=== PATIENT | male | born 1995 | race Asian ===

== ENCOUNTER 2016-08-12 14:41 | Emergency (ER) | payer OTHER ==
[~2016-08-12] VITALS: Ht 180.3 cm; Wt 74.6 kg
[~2016-08-12 14:41] MED LIST: CETI10TA84 PO; METH1TAB81 PO
[2016-08-12 14:53] VITALS: BP 132/76; TEMP 36.8; Ht 180.3 cm; Wt 74.6 kg
[2016-08-12] MEDS ORDERED: PROPARACAINE HCL 0.5% OP SOLN 15 ML BTL OP STA (15:16)
[2016-08-12] MEDS ORDERED: CIPROFLOXACIN HCL 0.3% OP SOLN 2.5 ML BTL OP ONE (15:45)
--- NOTE | 2016-08-12 15:53 | EMERGENCY ROOM VISIT NOTE ---
ED Visit Note First contact with patient: 15:03 CHIEF COMPLAINT: Eye pain HISTORY OF PRESENT ILLNESS: This 20-year-old male patient presents to the emergency department ambulatory complaining of pain in the right eye which has been present for several days but worsened significantly this morning. The patient is a contact lens wearer and states that he always remove the contacts at night, then replaces them in the morning. He states that he noticed increased pain in the right eye after removing his contact last night. He states that when he woke up this morning, his eye was very red and light bothered the eye. He does report he has had issues similar to this in the past. He denies any blurred vision or double vision. The patient rates the pain as stinging and 6/10. He denies any recent trauma to the eye. REVIEW OF SYSTEMS: A 6 system review of systems was completed with positives and pertinent negatives listed in the HPI. ALLERGIES: No known drug allergies MEDICATIONS: No chronic medications PMH: No significant past medical history. SOCIAL HISTORY: The patient is a [employer] student and lives by himself. Nonsmoker, denies alcohol use. PHYSICAL EXAM: Vital Signs: Reviewed Nurse's notes, vital signs stable. Visual acuity is 20/200 in the left eye, in the right eye it is unable to be measured without correction. GENERAL: This is a 20-year-old male, in no acute distress, but who is uncomfortable from the eye problem. Well-developed well-nourished. EYES: The pupils are equal round and reactive to light and accommodation. EOMs are full and without tenderness. There is discharge of clear tears from the right eye which is injected. There is no foreign body visible under the eyelid even after lid eversion. Funduscopic exam reveals no hemorrhages, papilledema, or other abnormalities. No foreign body was seen embedded in the cornea under slit lamp exam. The cornea was clear and no hyphema was seen. Diffuse, punctate fluorescein uptake was observed over the cornea of the right eye under UV light examination. No dendritic uptake noted. EMERGENCY DEPARTMENT COURSE: I examined the patient. Alcaine 2 drops were placed in the patient's right eye. A slit lamp exam was performed as above. The patient appears to have a punctate keratitis secondary to contact lens use. He does report he has had similar issues in the past. The patient's visual acuity was very poor, but he states that his vision is normal for him without correction. Ciloxan two drops was placed in the patient's right eye. The patient has already seen [facility] and has an appointment scheduled in 2 days for a recheck. He was instructed to return here for any worsening of his vision or worsening of his symptoms. He verbalized understanding of my assessment and treatment plan. The patient was discharged home in good condition. DIAGNOSIS: Corneal abrasion of the right eye Current/Historical Medications No Active Prescriptions or Reported Meds Allergies Coded Allergies: No Known Allergies (Unverified , 04/30/16) Vital Signs Date Time Temp Pulse Resp B/P Pulse Ox O2 Delivery O2 Flow Rate FiO2 08/12/16 14:53 36.8 100 21 132/76 97 Room Air Medications Administered Medications (Trade) Dose Ordered Sig/Ana Route Start Time Stop Time Status Last Admin Dose Admin Proparacaine HCl (Alcaine 0.5% Oph Soln) 2 drops NOW STAT OP 08/12/16 15:16 08/12/16 15:17 DC 08/12/16 15:16 2 DROPS Departure Information Impression Primary Impression: Keratitis secondary to contact lens Dispostion Home / Self-Care Condition GOOD Prescriptions No Active Prescriptions or Reported Meds Referrals [facility] (PCP) Patient Instructions My [facility] Additional Instructions You have been treated in the Emergency Department today for your Corneal Abrasion. You have been prescribed Ciloxan eye drops. This is an antibiotic which will help to prevent an infection from developing in your affected eye. You should use 2 drops in the affected eye every 2 hours while awake for the first 2 days, then every 4 hours for the remaining 5 days. This is a total of a 7-day course for these antibiotic eye drops. For pain control, you can use the following [id number] medicines (if >12 yo): - Regular strength (325mg/tab) Tylenol (acetaminophen) 2 tabs every 4-6 hours as needed. Do not exceed 12 tablets in a 24 hour period. Avoid taking more than 4 grams (4000 mg) of Tylenol per day. This includes any other sources of acetaminophen you may take on a regular basis. - Regular strength (200 mg/tab) Advil (ibuprofen) 1-2 tabs every 4-6 hours as needed. Do not exceed a dose of 3200 mg per day. You should relax in a quiet, dark place for the rest of the day. You should wear sunglasses while outside for the next few days until your eyes are not as sensitive to the light. Follow-up with [facility] as scheduled. Return to the Emergency Department if your current symptoms worsen despite treatment course outlined above, or if you develop any of the following symptoms : intractable pain, visual disturbances, loss of vision, increased redness, swelling, drainage, or if you develop a fever.
[2016-08-12 16:00] VITALS: PULSE 90; O2SAT 98
== END 2016-08-12 16:00 | disposition home or self-care (01) ==
LOC: C.EDB 14:42 → C.EDD 16:00
DX: H16.9 Unspecified keratitis (principal); H18.821 Corneal disorder due to contact lens, right eye

== ENCOUNTER 2017-03-01 18:49 | Emergency (ER) | payer OTHER ==
[~2017-03-01] VITALS: Ht 180.3 cm; Wt 73.2 kg
[2017-03-01 18:52] VITALS: BP 119/69; PULSE 99; TEMP 37; O2SAT 96; Ht 180.3 cm; Wt 73.2 kg
[2017-03-01] MEDS ORDERED: PROPARACAINE HCL 0.5% OP SOLN 15 ML BTL OP STA (19:05)
[2017-03-01] MEDS ORDERED: HYDR-5688 PO (19:26)
[2017-03-01] MEDS ORDERED: CIPR0.3S OP (19:26)
--- NOTE | 2017-03-02 03:50 | EMERGENCY ROOM VISIT NOTE ---
ED Visit Note First contact with patient: 18:56 Chief Complaint: I scratched my right eye with my contact lens. History of Present Illness: Mr. Carlos is a 21-year-old male who ambulates into the ED complaining of bilateral eye pain more pronounced on the right. Patient reports he went to sleep without removing his contacts. When he awoke from sleep approximately 2 hours ago he attempted to remove the contact and reports the contact for dried out and he had difficulty removing them. He reports he believes he scratched his left cornea. Patient reports he has having a severe burning sensation in the right eye. He rates his discomfort 8/10. His pain is nonradiating. He has not identified any aggravating or alleviating factors related to the pain. He has not taken any medications for pain prior to arrival at the hospital. He denies any associated symptoms including fevers, chills, sweats, headaches, nausea, vomiting, visual changes. He then goes on to report that he is also having a mild discomfort in his left eye but does not believe he scratched his eyes. Lastly he reports he's had 2 similar episodes from not taking his contacts out. Review of Systems: As noted above in history of present illness. Past Medical History: As previously noted. Current Medications: Patient denies. Allergies to Medications: Patient denies. Social History: Patient is currently University student; he feels safe in his home environment; he denies tobacco use and admits alcohol use. Tetanus Immunization Status: Patient reports up-to-date. Physical Examination: Vital Signs: Date Time Temp Pulse Resp B/P (MAP) Pulse Ox O2 Delivery O2 Flow Rate FiO2 03/01/17 18:52 37.0 99 16 119/69 96 Room Air GENERAL: 21-year-old male in moderate distress due to pain, nontoxic-appearing, afebrile and hemodynamically stable. NEUROLOGICAL: Awake, alert and oriented to person, place and time. Answering questions appropriately and following commands. SKIN: Warm, dry and pink. No soft tissue eruptions or trauma noted. HEENT: Atraumatic and normocephalic. PERRLA. EOMI without nystagmus. Sclera moderately and conjunctiva pink with drainage of clear tears. Moderate light sensitivity. No foreign bodies noted under the eyelids are embedded in the cornea. The anterior chamber is clear. On slit lamp examination with staining both eyes present with superficial punctate keratitis and the right eye has a corneal abrasion. Visual Acuity: Right 20/50 without correction, Left 20/30 without correction. No drainage from naris. ED Course: Patient is assessed as noted above. Patient's medication list was reviewed. Alcaine was used to anesthetize the ice for examination. Patient was educated about today's findings and instructed on his treatment plan ; he verbalized understanding and agreement with this plan. Clinical Impression: Right corneal abrasion. Bilateral punctate keratitis. Disposition: Patient discharged home in stable condition; prior to departure he was reassessed and subjectively reported that he was pain-free. Plan: Comfort measures were discussed with the patient including a sliding pain medication scale of ibuprofen, acetaminophen and Ronda; patient's name was checked in the state database and no red flags were noted and he patient was given appropriate narcotic precautions. Patient was encouraged to use 2 drops of Ciloxan in both eyes every 4 hours while awake for 5 days. Patient was encouraged to avoid contact use for the next 10 days. Patient is encouraged to follow-up with ophthalmology or return to the ED in 36- 48 hours for recheck. Patient is encouraged return the ED sooner for worsening/uncontrolled pain, vomiting, fevers, visual change, headaches or any new/concerning symptoms.
== END 2017-03-01 19:39 | disposition home or self-care (01) ==
LOC: C.EDB 18:50 → C.EDD 19:39
DX: S05.01XA Injury of conjunctiva and corneal abrasion without foreign body, right eye, initial encounter (principal); X58.XXXA Exposure to other specified factors, initial encounter; H16.143 Punctate keratitis, bilateral

== ENCOUNTER 2017-03-20 21:16 | Emergency (ER) | payer OTHER ==
[~2017-03-20] VITALS: Ht 180.3 cm; Wt 72.8 kg
[~2017-03-20 21:16] MED LIST changes: -CETI10TA84 PO; +HYDR-5688 PO; -METH1TAB81 PO
[2017-03-20 21:21] VITALS: TEMP 37; Ht 180.3 cm; Wt 72.8 kg
[2017-03-20] MEDS ORDERED: ONDANSETRON INJ 2 MG/ML 2 ML VIAL IV STA (21:36)
[2017-03-20] MEDS ORDERED: SODIUM CHLORIDE 0.9% 1000ML 1,000 ML IV STA (21:36)
[2017-03-20 21:47] LABS: BASO % 0.4 %; BASO ABS # 0.03 K/uL (0-0.2); COMPLETE YES; EOS % 0.3 %; HEMATOCRIT 50.3 % (42-52); IG% 0.3 %; MEAN CELL VOLUME 84.3 fL (80-100); MEAN CORPUSCULAR HGB CONC 36.8 g/dl (32-36); MEAN PLATELET VOLUME 9.7 fL (7.4-10.4); MONO % 8.7 %; NEUT % 66.3 %; PLATELET COUNT 198 K/uL (130-400); RED BLOOD COUNT 5.97 M/uL (4.7-6.1); WHITE BLOOD COUNT 7.93 K/uL (4.8-10.8)
[2017-03-20] MEDS ORDERED: PRVHFAIN INH (21:53)
[2017-03-20 22:13] LABS: BUN/CREATININE RATIO 6.8 (10-20); CALCIUM 9.4 mg/dl (8.5-10.1); CREATININE 1.14 mg/dl (0.60-1.40); POTASSIUM 3.5 mmol/L (3.5-5.1)
[2017-03-20 22:14] LABS: URINE APPEARANCE CLEAR (CLEAR); URINE BILIRUBIN NEG (NEG); URINE COLOR YELLOW; URINE NITRITE NEG (NEG); URINE PH 7.5 (4.5-7.5); URINE SPECIFIC GRAVITY 1.025 (1.000-1.030); UROBILINOGEN NEG (NEG); ZZUR CULT IF INDIC CLEAN CATCH NO
[2017-03-20 22:25] LABS: MANUAL MICROSCOPIC REQUIRED? NO; REVIEW REQ? NO
[2017-03-21 00:11] VITALS: BP 149/89; PULSE 100; O2SAT 99
[2017-03-21] MEDS ORDERED: ONDANSETRON HOME PACK 4MG OD TAB ONE (00:12)
--- NOTE | 2017-03-21 03:31 | EMERGENCY ROOM VISIT NOTE ---
History First contact with patient: 21:26 Chief Complaint: NAUSEA Stated Complaint: SEVERE NAUSEA AND DIZZINESS,THREW UP, NEAR SYNCOPE History of Present Illness The patient is a 21 year old male who presents to the Emergency Room with complaints of Nausea, vomiting, diarrhea and lightheadedness for the past 12 hours after eating shrimp lo mein yesterday afternoon from a [employer] restaurant. No blood or black in the diarrhea or emesis. Patient denies chest pain, dyspnea, abdominal pain, fevers, recent antibiotics, well water, recent travel. No sick contacts. Review of Systems See HPI for pertinent positives & negatives. A total of 10 systems reviewed and were otherwise negative. Past Medical/Surgical History Medical Problems: (1) No Known Active Medical Problems Social History Smoking Status: Former Smoker Alcohol Use: none Drug Use: none Occupation Status: [employer] student Current/Historical Medications Scheduled PRN Albuterol (Ventolin Hfa), 2 PUFFS INH UD PRN for Shortness of Breath Physical Exam Vital Signs Date Time Temp Pulse Resp B/P (MAP) Pulse Ox O2 Delivery O2 Flow Rate FiO2 03/21/17 00:11 100 18 149/89 99 Room Air 03/20/17 21:21 37.0 128 20 135/80 99 Room Air Physical Exam VITALS: Vitals are noted on the nurse's note and reviewed by myself. Vital signs mildly tachycardic. GENERAL: Pleasant male, in no acute distress, nondiaphoretic, well-developed well-nourished. SKIN: The skin was without rashes, erythema, edema, or bruising. There is no tenting of the skin. Capillary reflex less than 2 seconds. HEAD: Normocephalic atraumatic. EARS: External auditory canals clear, tympanic membranes pearly brewer without erythema or effusion bilaterally. EYES: Pupils equal round and reactive to light and accommodation. Conjunctivae without injection, sclerae without icterus. Extraocular movements intact. NOSE: Patent, turbinates without inflammation or discharge. MOUTH: Mucous membranes mildly dry. Pharynx without erythema or exudate. Uvula midline. Airway patent. Tongue does not deviate. NECK: Supple without nuchal rigidity. No lymphadenopathy. No thyromegaly. Cervical spine is nontender. No JVD. HEART: Tachycardic rate and rhythm without murmurs gallops or rubs. LUNGS: Clear to auscultation bilaterally without wheezes, rales or rhonchi. No dullness to percussion. No retractions or accessory muscle use. ABDOMEN: Positive bowel sounds x 4. Normal tympanic percussion. Soft, nontender, without masses or organomegaly. Vazquez sign negative. No guarding or rebound tenderness. MUSCULOSKELETAL: No muscle atrophy, erythema, or edema noted. NEURO: Patient was alert and oriented to person place and time. Normal sensation to light and sharp touch. No focal neurological deficits. Medical Decision & Procedures Laboratory Results 03/20/17 21:30 Red Blood Count 5.97, Mean Corpuscular Volume 84.3, Mean Corpuscular Hemoglobin 31.0, Mean Corpuscular Hemoglobin Concent 36.8, Mean Platelet Volume 9.7, Neutrophils (%) (Auto) 66.3, Lymphocytes (%) (Auto) 24.0, Monocytes (%) (Auto) 8.7, Eosinophils (%) (Auto) 0.3, Basophils (%) (Auto) 0.4, Neutrophils # (Auto) 5.27, Lymphocytes # (Auto) 1.90, Monocytes # (Auto) 0.69, Eosinophils # (Auto) 0.02, Basophils # (Auto) 0.03 03/20/17 21:30 Test 03/20/17 21:30 White Blood Count 7.93 K/uL (4.8-10.8) Red Blood Count 5.97 M/uL (4.7-6.1) Hemoglobin 18.5 g/dL (14.0-18.0) Hematocrit 50.3 % (42-52) Mean Corpuscular Volume 84.3 fL (80-100) Mean Corpuscular Hemoglobin 31.0 pg (25-34) Mean Corpuscular Hemoglobin Concent 36.8 g/dl (32-36) Platelet Count 198 K/uL (130-400) Mean Platelet Volume 9.7 fL (7.4-10.4) Neutrophils (%) (Auto) 66.3 % Lymphocytes (%) (Auto) 24.0 % Monocytes (%) (Auto) 8.7 % Eosinophils (%) (Auto) 0.3 % Basophils (%) (Auto) 0.4 % Neutrophils # (Auto) 5.27 K/uL (1.4-6.5) Lymphocytes # (Auto) 1.90 K/uL (1.2-3.4) Monocytes # (Auto) 0.69 K/uL (0.11-0.59) Eosinophils # (Auto) 0.02 K/uL (0-0.5) Basophils # (Auto) 0.03 K/uL (0-0.2) RDW Standard Deviation 42.2 fL (36.4-46.3) RDW Coefficient of Variation 13.9 % (11.5-14.5) Immature Granulocyte % (Auto) 0.3 % Immature Granulocyte # (Auto) 0.02 K/uL (0.00-0.02) Urine Color YELLOW Urine Appearance CLEAR (CLEAR) Urine pH 7.5 (4.5-7.5) Urine Specific Reva 1.025 (1.000-1.030) Urine Protein NEG (NEG) Urine Glucose (UA) NEG (NEG) Urine Ketones TRACE (NEG) Urine Occult Blood NEG (NEG) Urine Nitrite NEG (NEG) Urine Bilirubin NEG (NEG) Urine Urobilinogen NEG (NEG) Urine Leukocyte Esterase NEG (NEG) Anion Gap 8.0 mmol/L (3-11) Est Creatinine Clear Calc Drug Dose 106.4 ml/min Estimated GFR () 106.7 Estimated GFR (Non- 92.1 BUN/Creatinine Ratio 6.8 (10-20) Calcium Level 9.4 mg/dl (8.5-10.1) Total Bilirubin 2.2 mg/dl (0.2-1) Direct Bilirubin 0.5 mg/dl (0-0.2) Aspartate Amino Transf (AST/SGOT) 22 U/L (15-37) Alanine Aminotransferase (ALT/SGPT) 22 U/L (12-78) Alkaline Phosphatase 74 U/L (45-117) Total Protein 8.7 gm/dl (6.4-8.2) Albumin 4.8 gm/dl (3.4-5.0) Medications Administered Medications (Trade) Dose Ordered Sig/Ana Route Start Time Stop Time Status Last Admin Dose Admin Sodium Chloride 1,000 ml @ 999 mls/hr Q1H1M STAT IV 03/20/17 21:36 03/20/17 22:36 DC 03/20/17 21:45 999 MLS/HR Ondansetron HCl (Zofran Inj) 4 mg NOW STAT IV 03/20/17 21:36 10/31/17 21:38 DC 03/20/17 21:45 4 MG Ondansetron HCl (ZOFRAN ODT 4MG Home Pack) [address] [facility] [employer] ONCE .ROUTE 03/21/17 00:12 03/21/17 00:13 DC 03/21/17 00:12 1 [facility] ED Course Prior records/ancillary studies reviewed. Triage Nursing notes reviewed. The patient's history was concerning for nausea, vomiting, diarrhea, and abdominal pain. Differential diagnosis: Etiologies such as gastroenteritis, food borne illness, infections, appendicitis , diverticulitis, inflammatory bowel disease, obstruction, GI bleed, biliary pathology, as well as others were entertained. Physical examination findings: As above. Abdominal examination revealed no tenderness. Vital signs reviewed and revealed mildly tachycardic. ER treatment provided: IV hydration 1 L NSS. Zofran, by mouth fluids On reassessment the patient felt better. Patient was tolerating p.o. intake. Diagnostics interpretation by me: The labs revealed stable H&H. Elevated bilirubin. 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 He was advised to follow-up with health services for further workup on this. This appears to be consistent with vomiting and diarrhea most likely viral in etiology. Patient did not have an acute abdomen on exam. He is well- appearing. He is tolerating fluids. He was advised to clear liquid diet today and then progress as tolerated to bland diet tomorrow. He is advised to follow- up with health services in a few days or here in the ER sooner for abdominal pain, fevers, vomiting, worsening signs or symptoms or as needed. By the evaluation outlined above emergent etiologies such as appendicitis, diverticulitis, obstruction, cardiac sources, mesenteric ischemia, aortic pathology, inflammatory bowel disease, renal colic, PUD, biliary pathology, UTI , as well as others were deemed relatively unlikely. The pt informed about the findings as listed above. All questions were answered and pleased with the treatment. Return instructions were outlined and the patient was discharged in stable condition. Outpatient prescription management: Zofran Referral: The patient was referred to their primary care physician/health services for follow-up in 2 to 3 days for a recheck of the current condition. Medical Decision As above Medication Reconcilliation Current Medication List: was personally reviewed by me Blood Pressure Screening Patient's blood pressure: Normal blood pressure Impression Primary Impression: Nausea vomiting and diarrhea Departure Information Dispostion Home / Self-Care Condition GOOD Referrals No Doctor, Assigned (PCP) Patient Instructions My [facility] Additional Instructions DO NOT drive, drink alcohol, operate machinery, or perform dangerous activities today. You were given medications in the ER that can affect your ability to safely function or operate a vehicle. Your bilirubin is elevated today. You should follow-up with health services for this. This most likely is Gilbert syndrome which is a benign finding. Zofran(odansetron) tablets 4mg: Take one and allow it to dissolve in your mouth every four to six hours as needed for nausea or vomiting. Ibuprofen(Motrin, Advil) may be used for fever or pain. Use 600mg every six hours as needed. Take with food. Avoid using more than 2400mg in a 24 hour period. Do not use 2400mg per day for more than three consecutive days without physician direction. Prolonged inappropriate use can lead to stomach upset or ulcers. (AND/OR) Acetaminophen(Tylenol) may be used for fever or pain. Use 1000mg every six hours as needed. Avoid using more than 3000mg in a 24 hour period. Rest and drink plenty of fluids as tolerated. Slow sips of water or sports drinks are recommended instead of large amounts all at once. Continue current medications. Once your stomach is settled start with a clear liquid diet (jello, soup broth, etc.) and then advance as tolerated. You should avoid full, heavy meals for about 24 hrs from the time your symptoms resolved. Return to the ER for persistent vomiting, fevers, abdominal pain, chest pains, difficulty breathing, black or bloody stools, worsening of your condition, or as needed. Follow up with your primary physician / health services in 2-3 days for a recheck of your current condition.
== END 2017-03-21 00:15 | disposition home or self-care (01) ==
LOC: C.EDB 21:17
DX: R11.2 Nausea with vomiting, unspecified (principal); R19.7 Diarrhea, unspecified; Z87.891 Personal history of nicotine dependence

== ENCOUNTER 2017-04-28 20:57 | Emergency (ER) | payer OTHER ==
[~2017-04-28] VITALS: Ht 182.9 cm; Wt 72.4 kg
[~2017-04-28 20:57] MED LIST changes: -HYDR-5688 PO; +PRVHFAIN INH
[2017-04-28 20:59] VITALS: TEMP 36.8; Ht 182.9 cm; Wt 72.4 kg
[2017-04-28] MEDS ORDERED: SODIUM CHLORIDE 0.9% 1000ML 1,000 ML IV STA (21:17)
[2017-04-28] MEDS ORDERED: ONDANSETRON INJ 2 MG/ML 2 ML VIAL IV STA (21:17)
--- NOTE | 2017-04-28 21:21 | EMERGENCY ROOM VISIT NOTE ---
History Report prepared by Mary Kay: Josephine Hutchins Under the Supervision of: Dr. Tony Elise D.O. First contact with patient: 21:04 Chief Complaint: DIZZY Stated Complaint: NAUSEA, DIZZY History of Present Illness The patient is a 21 year old male who presents to the Emergency Room with complaints of intermittent nausea and dizziness beginning 2 days ago. The patient reports a headache, decreased appetite, lightheadedness and one episode of vomiting occurring yesterday. He denies any shortness of breath, chest pain, or abdominal pain. He states he was seen in the ED for the same symptoms a month ago and was told his symptoms may have been a result of something he ate. The patient denies any alcohol or tobacco use. The patient has no previous surgical history. Source of History: patient Onset: 2 days ago Position: other (global) Quality: other (nausea and dizziness) Timing: intermittent Associated Symptoms: + headache, + nausea, + vomiting, No chest pain, No SOB , No abdominal pain Review of Systems See HPI for pertinent positives & negatives. A total of 10 systems reviewed and were otherwise negative. Past Medical & Surgical Medical Problems: (1) No Known Active Medical Problems Family History Patient reports no known family medical history. Social History Smoking Status: Former Smoker Alcohol Use: none Drug Use: none Occupation Status: [employer] student Current/Historical Medications No Active Prescriptions or Reported Meds Allergies Coded Allergies: No Known Allergies (Unverified , 04/30/16) Physical Exam Vital Signs Date Time Temp Pulse Resp B/P (MAP) Pulse Ox O2 Delivery O2 Flow Rate FiO2 04/29/17 03:03 88 18 159/86 100 04/29/17 02:20 100 15 157/90 100 Room Air 04/29/17 00:52 83 16 141/81 100 Room Air 04/28/17 23:23 81 25 144/76 100 Room Air 04/28/17 22:18 87 04/28/17 20:59 36.8 116 16 137/80 97 Room Air Physical Exam GENERAL: Patient is awake, alert, and in no acute distress. Patient is resting comfortably and showing no signs of anxiety EYES: The conjunctivae are clear. The pupils are round and reactive. EARS, NOSE, MOUTH AND THROAT: The nose is without any evidence of any deformity. Mucous membranes are dry tongue is midline NECK: The neck is nontender and supple. RESPIRATORY: Normal respiratory effort is noted there is no evidence of wheezing rhonchi or rales CARDIOVASCULAR: Regular rate and rhythm noted there no murmurs rubs or gallops normal S1 normal S2 GASTROINTESTINAL: The abdomen is soft. Bowel sounds are present in all quadrants. Abdomen is nontender MUSCULOSKELETAL/EXTREMITIES: There is no evidence of gross deformity full range of motion is noted in the hips and shoulders SKIN: There is no obvious evidence of any rash. There are no petechiae, pallor or cyanosis noted. NEUROLOGIC: Patient is awake alert and oriented x3 strength is symmetric patellar reflexes are 2+ bilaterally Medical Decision & Procedures ER Provider Diagnostic Interpretation: Radiology results as stated below per my review and radiologist interpretation: CT OF THE HEAD WITHOUT CONTRAST FINDINGS: No acute intracranial hemorrhage, midline shift or mass effect is present. Ventricular system is normal. Basilar cisterns are patent. There are no extra-axial collections. There is a 3.1 x 1.9 cm hypodensity within the right cerebellar hemisphere. This may be artifactual. Apparent hypodensity within the left cerebellar hemisphere is likely artifactual. Bilateral maxillary sinus mucous retention cysts are noted. There is no calvarial fracture. Mastoid air cells are clear. IMPRESSION: 1. No acute intracranial hemorrhage. 2. 3.1 x 1.9 cm hypodense focus within the right cerebellar hemisphere. Artifact is favored however an acute infarct could appear similar. An MRI of the brain is recommended for further evaluation. Findings discussed with Dr. Elise at time of dictation. 3. Left cerebellar hemispheric hypodensity which is likely artifactual but can be assessed at time of MRI. Electronically signed by: James Long M.D. GALLBLADDER: Hepatomegaly. No gallstones. Normal common bile duct. Otherwise unremarkable right upper quadrant. Radiologist: Robert Alvarez MD Abdominal Series interpreted by me: No acute cardiopulmonary disorder heart size normal nonspecific bowel gas pattern noted no free air no obstruction Laboratory Results 04/28/17 21:45 Red Blood Count 5.15, Mean Corpuscular Volume 86.6, Mean Corpuscular Hemoglobin 32.2, Mean Corpuscular Hemoglobin Concent 37.2, Mean Platelet Volume 9.4, Neutrophils (%) (Auto) 52.8, Lymphocytes (%) (Auto) 34.8, Monocytes (%) (Auto) 10.6, Eosinophils (%) (Auto) 1.3, Basophils (%) (Auto) 0.3, Neutrophils # (Auto ) 3.28, Lymphocytes # (Auto) 2.16, Monocytes # (Auto) 0.66, Eosinophils # (Auto ) 0.08, Basophils # (Auto) 0.02 04/28/17 21:45 Test 04/28/17 21:45 White Blood Count 6.21 K/uL (4.8-10.8) Red Blood Count 5.15 M/uL (4.7-6.1) Hemoglobin 16.6 g/dL (14.0-18.0) Hematocrit 44.6 % (42-52) Mean Corpuscular Volume 86.6 fL (80-100) Mean Corpuscular Hemoglobin 32.2 pg (25-34) Mean Corpuscular Hemoglobin Concent 37.2 g/dl (32-36) Platelet Count 182 K/uL (130-400) Mean Platelet Volume 9.4 fL (7.4-10.4) Neutrophils (%) (Auto) 52.8 % Lymphocytes (%) (Auto) 34.8 % Monocytes (%) (Auto) 10.6 % Eosinophils (%) (Auto) 1.3 % Basophils (%) (Auto) 0.3 % Neutrophils # (Auto) 3.28 K/uL (1.4-6.5) Lymphocytes # (Auto) 2.16 K/uL (1.2-3.4) Monocytes # (Auto) 0.66 K/uL (0.11-0.59) Eosinophils # (Auto) 0.08 K/uL (0-0.5) Basophils # (Auto) 0.02 K/uL (0-0.2) RDW Standard Deviation 44.7 fL (36.4-46.3) RDW Coefficient of Variation 14.2 % (11.5-14.5) Immature Granulocyte % (Auto) 0.2 % Immature Granulocyte # (Auto) 0.01 K/uL (0.00-0.02) Urine Color DK YELLOW Urine Appearance CLEAR (CLEAR) Urine pH 6.5 (4.5-7.5) Urine Specific [place] 1.024 (1.000-1.030) Urine Protein NEG (NEG) Urine Glucose (UA) NEG (NEG) Urine Ketones NEG (NEG) Urine Occult Blood NEG (NEG) Urine Nitrite NEG (NEG) Urine Bilirubin NEG (NEG) Urine Urobilinogen NEG (NEG) Urine Leukocyte Esterase NEG (NEG) Anion Gap 7.0 mmol/L (3-11) Est Creatinine Clear Calc Drug Dose 111.7 ml/min Estimated GFR () 113.9 Estimated GFR (Non- 98.3 BUN/Creatinine Ratio 8.2 (10-20) Calcium Level 8.9 mg/dl (8.5-10.1) Total Bilirubin 3.2 mg/dl (0.2-1) Direct Bilirubin 0.3 mg/dl (0-0.2) Aspartate Amino Transf (AST/SGOT) 23 U/L (15-37) Alanine Aminotransferase (ALT/SGPT) 27 U/L (12-78) Alkaline Phosphatase 66 U/L (45-117) Troponin I < 0.015 ng/ml (0-0.045) Total Protein 7.8 gm/dl (6.4-8.2) Albumin 4.2 gm/dl (3.4-5.0) Lipase 130 U/L (73-393) Laboratory results per my review. Medications Administered Medications (Trade) Dose Ordered Sig/Ana Route Start Time Stop Time Status Last Admin Dose Admin Sodium Chloride 1,000 ml @ 999 mls/hr Q1H1M STAT IV 04/28/17 21:17 04/28/17 22:17 DC 04/28/17 21:39 999 MLS/HR Ondansetron HCl (Zofran Inj) 4 mg NOW STAT IV 04/28/17 21:17 04/28/17 21:18 DC 04/28/17 21:39 4 MG Lorazepam (Ativan Inj) 0.5 mg NOW STAT IV 04/29/17 00:11 04/29/17 00:12 DC 04/29/17 00:51 0.5 MG Ondansetron HCl (ZOFRAN ODT 4MG Home Pack) 1 homepack UD ONCE PO 04/29/17 03:00 04/29/17 03:01 DC 04/29/17 02:59 1 HOMEPACK ECG Indication: nausea Rate (beats per minute): 83 Rhythm: normal sinus Findings: RBBB (incomplete), no ectopy, other (No acute ST segment abnormality) Comparison ECG Date: no prior available ED Course 2110: The patient was evaluated in room A10. A complete history and physical examination were performed. 2116: Ordered Zofran Inj 4 mg IV, NSS 1,000 ml @ 999 mls/hr IV. 0030: The patient was signed out to Dr. Hernández at the change of shifts. Pending MRI. Medical Decision Differential diagnosis: Etiologies such as gastroenteritis, food borne illness, infections, appendicitis , diverticulitis, inflammatory bowel disease, obstruction, GI bleed, biliary pathology, as well as others were entertained. Nursing notes reviewed. The patient is a 21-year-old male who presented to the emergency department for evaluation of dizziness and nausea vomiting. I was unsure if this represented a GI source for the nausea vomiting or a neurologic source. The patient has had similar symptoms in the past. He had no focal neurologic deficit. His CAT scan did show nonspecific abnormalities in the cerebellar region. For this reason an MRI was ordered. MRI was pending at change of shift. The patient was signed out to the nighttime physician. Please see his note for continuation of care and final disposition. I discussed the patient's laboratory radiographic studies with him. He was treated with IV fluids in the emergency department. On subsequent reevaluation he was feeling much better. Medication Reconcilliation Current Medication List: was personally reviewed by me Blood Pressure Screening Patient's blood pressure: Normal blood pressure Impression Primary Impression: Dizziness Additional Impressions: Abnormal head CT Vomiting Scribe Attestation The scribe's documentation has been prepared under my direction and personally reviewed by me in its entirety. I confirm that the note above accurately reflects all work, treatment, procedures, and medical decision making performed by me. Departure Information Prescriptions No Active Prescriptions or Reported Meds Referrals No Doctor, Assigned (PCP) Patient Instructions My [facility] Problem Qualifiers Additional Impressions: Vomiting Vomiting type: unspecified Vomiting Intractability: non-intractable Nausea presence: with nausea Qualified Codes: R11.2 - Nausea with vomiting, unspecified
[2017-04-28 21:53] LABS: BASO % 0.3 %; BASO ABS # 0.02 K/uL (0-0.2); COMPLETE YES; EOS % 1.3 %; HEMATOCRIT 44.6 % (42-52); IG% 0.2 %; LYMPH % 34.8 %; LYMPH ABS # 2.16 K/uL (1.2-3.4); MEAN CELL VOLUME 86.6 fL (80-100); MEAN CORPUSCULAR HEMOGLOBIN 32.2 pg (25-34); MEAN CORPUSCULAR HGB CONC 37.2 g/dl (32-36); MEAN PLATELET VOLUME 9.4 fL (7.4-10.4); MONO % 10.6 %; NEUT % 52.8 %; PLATELET COUNT 182 K/uL (130-400); RED BLOOD COUNT 5.15 M/uL (4.7-6.1); WHITE BLOOD COUNT 6.21 K/uL (4.8-10.8)
--- NOTE | 2017-04-28 22:09 | DIAGNOSTIC IMAGING REPORT ---
CT OF THE HEAD WITHOUT CONTRAST CLINICAL HISTORY: Dizziness and nausea. COMPARISON STUDY: No previous studies for comparison. CT DOSE: 687.98 mGy.cm TECHNIQUE: Helical axial images of the head were obtained without IV contrast. Automated exposure control was utilized for the study. A dose lowering technique was utilized adhering to the principles of ALARA. FINDINGS: No acute intracranial hemorrhage, midline shift or mass effect is present. Ventricular system is normal. Basilar cisterns are patent. There are no extra-axial collections. There is a 3.1 x 1.9 cm hypodensity within the right cerebellar hemisphere. This may be artifactual. Apparent hypodensity within the left cerebellar hemisphere is likely artifactual. Bilateral maxillary sinus mucous retention cysts are noted. There is no calvarial fracture. Mastoid air cells are clear. IMPRESSION: 1. No acute intracranial hemorrhage. 2. 3.1 x 1.9 cm hypodense focus within the right cerebellar hemisphere. Artifact is favored however an acute infarct could appear similar. An MRI of the brain is recommended for further evaluation. Findings discussed with Dr. Elise at time of dictation. 3. Left cerebellar hemispheric hypodensity which is likely artifactual but can be assessed at time of MRI. Electronically signed by: James Long M.D. 04/28/2017 10:08 PM Dictated Date/Time: 04/28/2017 9:54 PM
[2017-04-28 22:12] LABS: ALT/SGPT 27 U/L (12-78); BLOOD UREA NITROGEN 9 mg/dl (7-18); BUN/CREATININE RATIO 8.2 (10-20); CALCIUM 8.9 mg/dl (8.5-10.1); CARBON DIOXIDE 26 mmol/L (21-32); CHLORIDE 104 mmol/L (98-107); CREATININE 1.08 mg/dl (0.60-1.40); GLUCOSE 124 mg/dl (70-99); POTASSIUM 3.3 mmol/L (3.5-5.1); SODIUM 136 mmol/L (136-145)
[2017-04-28 22:15] LABS: ALKALINE PHOSPHATASE 66 U/L (45-117); AST/SGOT 23 U/L (15-37)
[2017-04-28 22:25] LABS: URINE APPEARANCE CLEAR (CLEAR); URINE BILIRUBIN NEG (NEG); URINE COLOR DK YELLOW; URINE NITRITE NEG (NEG); URINE PH 6.5 (4.5-7.5); URINE SPECIFIC GRAVITY 1.024 (1.000-1.030); UROBILINOGEN NEG (NEG)
[2017-04-28 22:28] LABS: MANUAL MICROSCOPIC REQUIRED? NO; REVIEW REQ? NO
[2017-04-29] MEDS ORDERED: LORAZEPAM 2 MG/ML 1 ML VIAL IV STA (00:11)
[2017-04-29] MEDS ORDERED: ONDANSETRON HOME PACK 4MG OD TAB PO ONE (03:00)
[2017-04-29 03:03] VITALS: BP 159/86; PULSE 88; O2SAT 100
--- NOTE | 2017-04-29 06:19 | DIAGNOSTIC IMAGING REPORT ---
GALLBLADDER-ABD LIMITED HISTORY: 21 years-old Male ABDOMINAL PAIN/GI acute generalized abdominal pain COMPARISON: None available TECHNIQUE: Multiple real-time sonographic images of the abdominal right upper quadrant were obtained assessing grayscale appearance and color flow. FINDINGS: The pancreas appears unremarkable with distal body and tail obscured by bowel gas. The liver is mildly prominent in size measuring 18.3 cm. No focal hepatic mass lesions. Hepatic parenchyma appears within normal limits. No shadowing cholelithiasis, gallbladder wall thickening or pericholecystic fluid collections. Sonographic Vazquez sign reported as negative. Common bile duct is normal, 2 mm. No intrahepatic biliary ductal dilation. Imaged right kidney is unremarkable measuring 10.8 cm in length without hydronephrosis. IMPRESSION: 1. No cholelithiasis or sonographic evidence of acute cholecystitis. 2. No biliary ductal dilation. The above report was generated using voice recognition software. It may contain grammatical, syntax or spelling errors. Electronically signed by: Alirio Knox M.D. 04/29/2017 6:18 AM Dictated Date/Time: 04/29/2017 6:15 AM
--- NOTE | 2017-04-29 06:21 | DIAGNOSTIC IMAGING REPORT ---
ABDOMEN 2VIEW W/PA CHEST RTN HISTORY: 21 years-old Male ABDOMINAL PAIN/GI acute generalized abdominal pain with nausea COMPARISON: Chest radiographs 04/30/2016 TECHNIQUE: AP view of the chest with upright and supine views of the abdomen FINDINGS: Cardiomediastinal and hilar silhouettes are within normal limits. No pneumothorax, pleural effusion, focal airspace consolidation or overt pulmonary edema. Bones of the chest are grossly intact. No pneumoperitoneum on the upright projection. Bowel gas pattern is nonobstructive. No urolith or organomegaly. IMPRESSION: Unremarkable acute abdominal series radiographs. The above report was generated using voice recognition software. It may contain grammatical, syntax or spelling errors. Electronically signed by: Alirio Knox M.D. 04/29/2017 6:20 AM Dictated Date/Time: 04/29/2017 6:18 AM
--- NOTE | 2017-04-29 06:40 | EMERGENCY ROOM VISIT NOTE ---
ED Visit Note First contact with patient: 01:12 21 yr old male arrived earlier due to dizziness and tingling back of head. Initially evaluated by Dr Elise with resolution of symptoms, however CT head showed abnormality over posterior right cerebellum. Thus MRI brain had been ordered and was pending being done when patient signed out to me. MRI reveals no acute findings thus CT findings were artifact. Patient feels fine, wants to go home. Discussed proper sleep, good nutrition. Advised follow up with PCP as maybe neuro appointment may be helpful if these symptoms continue.
--- NOTE | 2017-04-29 07:14 | DIAGNOSTIC IMAGING REPORT ---
BRAIN WITHOUT CONTRAST HISTORY: 21 years-old Male dizzy acute dizziness COMPARISON: CT head 04/28/2017 TECHNIQUE: Multiplanar multisequence MRI of the brain was obtained without contrast FINDINGS: Large field view forensic materials engineer localizer images demonstrate no gross abnormality. No restricted diffusion to suggest acute infarction, specifically the right cerebellum appears normal. Midline structures including the corpus callosum, brainstem, optic chiasm, pituitary gland, infundibulum and pineal gland are unremarkable in the sagittal T1 sequence. No cerebellar tonsillar herniation. No acute intracranial hemorrhage, midline shift, abnormal extra-axial collections, hydrocephalus or intracranial mass. No focal signal parenchymal abnormalities. The major flow voids at the level of the skull base appear patent. Moderate right and mild left polypoid mucosal thickening of the maxillary sinuses. There is mild ethmoid sinus disease. Mastoid air cells are clear. The scalp, calvarium and soft tissues are unremarkable. IMPRESSION: 1. No acute intracranial abnormality identified, specifically the right cerebellar hemisphere is within normal limits without evidence of acute infarction. The previously described area of focal low-attenuation within this region was likely secondary to artifact. 2. Paranasal sinus disease with moderate polypoid mucosal thickening of the right maxillary antrum. The above report was generated using voice recognition software. It may contain grammatical, syntax or spelling errors. Electronically signed by: Alirio Knox M.D. 04/29/2017 7:13 AM Dictated Date/Time: 04/29/2017 7:08 AM
--- NOTE | 2017-04-29 07:19 | DIAGNOSTIC IMAGING REPORT ---
MRA HEAD WITHOUT CONTRAST HISTORY: 21 years-old Male dizziness acute dizziness with headaches. Questioned area of low-attenuation within the right cerebellar hemisphere on comparison CT. COMPARISON: CT head 04/28/2017, MRA head 04/29/2017 TECHNIQUE: MRA of the head was obtained without contrast utilizing 3-D [id number] sequencing with MIP reformats. FINDINGS: Large field view fabric inspector localizer images demonstrate no gross abnormality. Moderate right and mild left polypoid mucosal thickening of the maxillary sinuses. Bilateral internal carotid arteries are widely patent and within normal limits. Anterior and middle cerebral arteries appear patent and within normal limits. Anterior communicating artery is also unremarkable. The right vertebral artery terminates into PICA. The left vertebral artery is dominant. There is origin of the bilateral posterior cerebral arteries. Basilar artery is diminutive in size. Bilateral posterior cerebral arteries are patent. IMPRESSION: 1. No evidence of aneurysm, high-grade stenosis, dissection or proximal branch occlusion. 2. origin of the bilateral posterior cerebral arteries. The above report was generated using voice recognition software. It may contain grammatical, syntax or spelling errors. Electronically signed by: Alirio Knox M.D. 04/29/2017 7:18 AM Dictated Date/Time: 04/29/2017 7:13 AM
== END 2017-04-29 03:03 | disposition home or self-care (01) ==
LOC: C.EDB 20:57
DX: R42 Dizziness and giddiness (principal); R90.89 Other abnormal findings on diagnostic imaging of central nervous system; R11.2 Nausea with vomiting, unspecified; Z87.891 Personal history of nicotine dependence

== ENCOUNTER 2017-07-28 21:30 | Emergency (ER) | payer OTHER ==
[~2017-07-28] VITALS: Ht 182.9 cm; Wt 71.8 kg
[2017-07-28 21:33] VITALS: TEMP 36.9; Ht 182.9 cm; Wt 71.8 kg
[2017-07-28 22:31] LABS: BASO % 0.4 %; BASO ABS # 0.02 K/uL (0-0.2); EOS % 0.7 %; EOS ABS # 0.04 K/uL (0-0.5); HEMATOCRIT 41.8 % (42-52); HEMOGLOBIN 14.7 g/dL (14.0-18.0); LYMPH % 32.4 %; LYMPH ABS # 1.85 K/uL (1.2-3.4); MEAN CELL VOLUME 85.3 fL (80-100); MEAN CORPUSCULAR HGB CONC 35.2 g/dl (32-36); MEAN PLATELET VOLUME 8.9 fL (7.4-10.4); MONO % 8.2 %; MONO ABS # 0.47 K/uL (0.11-0.59); NEUT % 58.3 %; NEUT ABS # 3.33 K/uL (1.4-6.5); PLATELET COUNT 176 K/uL (130-400); RED CELL DISTRIBUTION WIDTH CV 12.9 % (11.5-14.5); RED CELL DISTRIBUTION WIDTH SD 39.7 fL (36.4-46.3); WHITE BLOOD COUNT 5.71 K/uL (4.8-10.8)
[2017-07-28 22:52] LABS: ALBUMIN 4.1 gm/dl (3.4-5.0); CALCIUM 8.8 mg/dl (8.5-10.1); CREATININE 1.05 mg/dl (0.60-1.40); POTASSIUM 3.5 mmol/L (3.5-5.1)
[2017-07-28 22:55] LABS: TOTAL PROTEIN 7.5 gm/dl (6.4-8.2)
--- NOTE | 2017-07-29 00:11 | EMERGENCY ROOM VISIT NOTE ---
History First contact with patient: 21:54 Chief Complaint: ABDOMINAL PAIN Stated Complaint: PAIN IN R SIDE,NECK,BACK AND THROAT TIGHTNESS Nursing Triage Summary: right sided abd pain and pain in neck and he base of his skull for several days. just got back from [place]. History of Present Illness The patient is a 21 year old male who presents to the Emergency Room with multiple complaints. The patient reports that he developed a pain and pressure in his right mid abdomen approximately 1 week ago. The patient states that his symptoms started the [place] that [place]. His symptoms became constant over the next 2 days. [place] and [place] an antispasmodic. He states this helped his abdominal pain, however that he developed a pressure at the base of his skull and in his right neck. He was seen again by the doctor [place] the [place] and was told to stop the antispasmodic and taken anti-inflammatory medicine. He states that he has been taking this intermittently for the neck pain and it has been helping with the pain. He reports the pain sometimes spreads into the middle of his back. It is worse when he is moving. He specifically noticed it when he was carrying luggage. He states of abdominal pain has been improving, however he does intermittently get a sharp pain in the abdomen which lasts a few minutes. He denies nausea/vomiting, diarrhea, constipation, urinary symptoms or fevers. He denies chest pain or shortness of breath. He denies any history of abdominal issues or surgeries. He rates his overall discomfort a 7/10. Review of Systems A complete 10 point review of systems was reviewed with the patient with pertinent positives and negatives as per history of present illness. All else were negative. Past Medical/Surgical History Medical Problems: (1) No Known Active Medical Problems Family History Patient reports no known family medical history. Social History Smoking Status: Never Smoker Alcohol Use: none Drug Use: none Occupation Status: [employer] student Current/Historical Medications No Active Prescriptions or Reported Meds Physical Exam Vital Signs Date Time Temp Pulse Resp B/P (MAP) Pulse Ox O2 Delivery O2 Flow Rate FiO2 07/29/17 00:33 80 18 153/87 100 07/28/17 23:33 84 20 134/83 100 Room Air 07/28/17 21:33 36.9 97 18 145/95 99 Room Air Physical Exam VITALS: Vitals are noted on the nurse's note and reviewed by myself. Vital signs stable. GENERAL: This is a 21-year-old male, in no acute distress, nondiaphoretic, well- developed well-nourished. SKIN: The skin was without rashes. EARS: External auditory canals clear, tympanic membranes pearly brewer without erythema or effusion bilaterally. EYES: Pupils equal round and reactive to light and accommodation. Extraocular movements intact. MOUTH: Mucous membranes moist. Tonsils are not enlarged. Pharynx without erythema or exudate. NECK: Supple without nuchal rigidity. No lymphadenopathy. HEART: Regular rate and rhythm without murmurs gallops or rubs. LUNGS: Clear to auscultation bilaterally without wheezes, rales or rhonchi. No retractions or accessory muscle use. ABDOMEN: Positive bowel sounds x 4. Soft, nontender to palpation. MUSCULOSKELETAL: The right cervical paraspinous muscles are tight compared to the left. Full range of motion of the neck. NEURO: Patient was alert and oriented to person place and time. Medical Decision & Procedures ER Provider Diagnostic Interpretation: Per statrad interpretation: US RUQ: Mildly enlarged liver. Pancreas, liver, common bile duct, and the right kidney is unremarkable. The gallbladder is contracted (patient is not NPO). No gallbladder wall thickening. Radiologist: Gina Gil MD Laboratory Results 07/28/17 22:22 Red Blood Count 4.90, Mean Corpuscular Volume 85.3, Mean Corpuscular Hemoglobin 30.0, Mean Corpuscular Hemoglobin Concent 35.2, Mean Platelet Volume 8.9, Neutrophils (%) (Auto) 58.3, Lymphocytes (%) (Auto) 32.4, Monocytes (%) (Auto) 8.2, Eosinophils (%) (Auto) 0.7, Basophils (%) (Auto) 0.4, Neutrophils # (Auto) 3.33, Lymphocytes # (Auto) 1.85, Monocytes # (Auto) 0.47, Eosinophils # (Auto) 0.04, Basophils # (Auto) 0.02 07/28/17 22:22 Test 07/28/17 22:22 07/28/17 23:05 White Blood Count 5.71 K/uL (4.8-10.8) Red Blood Count 4.90 M/uL (4.7-6.1) Hemoglobin 14.7 g/dL (14.0-18.0) Hematocrit 41.8 % (42-52) Mean Corpuscular Volume 85.3 fL (80-100) Mean Corpuscular Hemoglobin 30.0 pg (25-34) Mean Corpuscular Hemoglobin Concent 35.2 g/dl (32-36) Platelet Count 176 K/uL (130-400) Mean Platelet Volume 8.9 fL (7.4-10.4) Neutrophils (%) (Auto) 58.3 % Lymphocytes (%) (Auto) 32.4 % Monocytes (%) (Auto) 8.2 % Eosinophils (%) (Auto) 0.7 % Basophils (%) (Auto) 0.4 % Neutrophils # (Auto) 3.33 K/uL (1.4-6.5) Lymphocytes # (Auto) 1.85 K/uL (1.2-3.4) Monocytes # (Auto) 0.47 K/uL (0.11-0.59) Eosinophils # (Auto) 0.04 K/uL (0-0.5) Basophils # (Auto) 0.02 K/uL (0-0.2) RDW Standard Deviation 39.7 fL (36.4-46.3) RDW Coefficient of Variation 12.9 % (11.5-14.5) Immature Granulocyte % (Auto) 0.0 % Immature Granulocyte # (Auto) 0.00 K/uL (0.00-0.02) Anion Gap 7.0 mmol/L (3-11) Est Creatinine Clear Calc Drug Dose 114.0 ml/min Estimated GFR () 117.9 Estimated GFR (Non- 101.7 BUN/Creatinine Ratio 12.3 (10-20) Calcium Level 8.8 mg/dl (8.5-10.1) Total Bilirubin 1.7 mg/dl (0.2-1) Direct Bilirubin 0.4 mg/dl (0-0.2) Aspartate Amino Transf (AST/SGOT) 19 U/L (15-37) Alanine Aminotransferase (ALT/SGPT) 25 U/L (12-78) Alkaline Phosphatase 62 U/L (45-117) Total Protein 7.5 gm/dl (6.4-8.2) Albumin 4.1 gm/dl (3.4-5.0) Urine Color YELLOW Urine Appearance CLEAR (CLEAR) Urine pH 6.5 (4.5-7.5) Urine Specific [place] 1.015 (1.000-1.030) Urine Protein NEG (NEG) Urine Glucose (UA) NEG (NEG) Urine Ketones NEG (NEG) Urine Occult Blood NEG (NEG) Urine Nitrite NEG (NEG) Urine Bilirubin NEG (NEG) Urine Urobilinogen NEG (NEG) Urine Leukocyte Esterase NEG (NEG) Medical Decision Differential diagnosis includes musculoskeletal pain, muscle spasm, viral illness, gastritis, gastroenteritis, cholecystitis, appendicitis, among others. The patient is a 21-year-old male who presents today complaining of 2 separate complaints. The patient states that he has had some neck pain for the past few days. The cervical paraspinous muscles are very tight and tense. He has been riding on an airplane recently and has been vacationing. His pain seems to be musculoskeletal. He was instructed to continue the naproxen as this has been helping his pain. The patient has no abdominal pain at this time, however states that he would like his gallbladder checked out [facility]. Labs revealed no leukocytosis, anemia or concerning electrolyte abnormality. Bilirubin slightly elevated, nonspecific and remainder of LFTs are within normal limits. Urinalysis was not suggestive of infection. Right upper quadrant ultrasound was performed and shows no evidence of cholecystitis and no gallstones. Patient was advised to follow-up with [facility] this week for further evaluation of his abdominal pain. Based on the patient's presentation and work up, I feel the patient is stable for outpatient treatment. The patient was educated to return to the emergency department for any worsening of their current condition or new/concerning symptoms. He will follow up with [facility]. Medication Reconcilliation Current Medication List: was personally reviewed by me Blood Pressure Screening Patient's blood pressure: Elevated blood pressure Blood pressure disposition: Elevated BP felt to be situational Impression Primary Impression: Right upper quadrant abdominal pain Additional Impression: Cervical paraspinous muscle spasm Departure Information Dispostion Home / Self-Care Condition GOOD Prescriptions No Active Prescriptions or Reported Meds Referrals [facility] (PCP) Patient Instructions My [facility] Additional Instructions Schedule a follow-up appointment with [facility] this week for recheck and further evaluation of your abdominal pain. Continue naproxen as needed for the pain in your neck. You may also use IcyHot/ Biofreeze and heat on the neck. For pain control, you can use the following [id number] medicines (if >12 yo): - Regular strength (325mg/tab) Tylenol (acetaminophen) 2 tabs every 4-6 hours as needed. Do not exceed 12 tablets in a 24 hour period. Avoid taking more than 4 grams (4000 mg) of Tylenol per day. This includes any other sources of acetaminophen you may take on a regular basis. Keep a bland diet. Return to the emergency department with worsening pain, fever, vomiting or other new/concerning symptoms. Problem Qualifiers
[2017-07-29 00:33] VITALS: BP 153/87; PULSE 80; O2SAT 100
--- NOTE | 2017-07-29 06:30 | DIAGNOSTIC IMAGING REPORT ---
BILIARY ULTRASOUND CLINICAL HISTORY: Right upper quadrant abdominal pain COMPARISON STUDY: 04/28/2017 FINDINGS: The pancreas appears sonographically normal. The liver appears sonographically normal. There is no right-sided hydronephrosis. No gallstones are visualized. The gallbladder is mildly contracted. There is no ductal dilatation. The common bile duct measures 4 mm. IMPRESSION: Normal biliary ultrasound. Electronically signed by: Cedric Villarreal M.D. 07/29/2017 6:29 AM Dictated Date/Time: 07/29/2017 6:28 AM
== END 2017-07-29 00:34 | disposition home or self-care (01) ==
LOC: C.EDB 21:31 → C.EDA 07-29 00:34
DX: R10.11 Right upper quadrant pain (principal); M62.838 Other muscle spasm